=== PATIENT | female | born 1995 | race Hispanic/Latino ===

== ENCOUNTER 2017-11-25 13:02 | Inpatient (IN) | payer MEDICAID, OTHER, SELFPAY ==
--- NOTE | 2017-11-25 14:27 | PDOC.LDHP ---
Labor and Delivery H&P Chief complaint: other (non-reactive NST, borderline abnormal SARBJIT (5)) HPI: Pt presents today to labor triage from clinic. She has not ate or drank much for the past 24 hours but does not have any complaints besides the normal itching in her hands and feet that she has had all during this and previous ones. She denies chest pain, shortness of breath, headache, reduced movement. Current gestational age (weeks): 33 (33.4) Due date: 01/09/18 Dating criteria: other (US at 29.1 wks) Grav: 5 Para: 4 OB History Details: cholestasis of Current complications: other (cholestasis of ) Abnormal US findings: Yes (borderline SARBJIT (5), non-reactive NST in clinic ) Past Medical History: none Current medications: none Previous surgical history: none Social history: none - Physical Exam Vital signs reviewed and normal: yes General: NAD Heart: RRR Lungs: nonlabored breathing Abdomen: gravid Extremeties: no edema FHT: category 1, variability present (accelerations present, baseline 140 HR) - OB Labs Blood type: B RH: positive Antibody Screen: negative HIV: negative RPR: negative HEPSAg: negative 1 hour GCT: positive 3 hour GTT: negative x4 GBS: unknown Urine drug screen: not done Rubella: immune Additional Labs: Bile acid: 15 10/29/17 - Assessment cholestasis of - Plan Plan: observation in L&D (repeat BPP and NST, PO hydration) <Abdon Shannon - Last Filed: 11/25/17 14:33> <Rochelle aPrra - Last Filed: 11/25/17 18:08> Allergies/Adverse Reactions: Allergies Allergy/AdvReac Type Severity Reaction Status Date / Time No Known Allergies Allergy Unverified 11/25/17 14:30 Attending Addendum - Attending Addendum Date/Time: 11/25/17 0807 I personally evaluated the patient and discussed the management with Dr. Shannon I agree with the History, Examination, Assessment and Plan documented above with any addition or exceptions noted below- 22 yo @33.4 weeks with cholestasis of sent from clinic due to a nonreactive NST and borderline amniotic fluid. Patient denies any complaints. Denies any ctx, LOF, VB. (+) FM. Afebrile VSS FHTs here is Category 1 and reactive. Repeat BPP 12/22 with total SARBJIT 4.9. Will hydrate overnight and repeat in AM. Will give course of steroids for lung maturity in anticipation of early delivery <Rochelle Parra - Last Filed: 11/25/17 18:08>
--- NOTE | 2017-11-25 15:37 | PDOC.EVN ---
Event Note - Event Note Event Note: Repeat BPP: 10/22 with SARBJIT 4.9, will start IV fluids and admit to observation, repeat BPP tomorrow
[2017-11-25] MEDS ORDERED: Acetaminophen 500 MG TAB PO PRN (15:38)
[2017-11-25] MEDS ORDERED: Ondansetron HCl/PF 4 MG/2 ML Vial IVP PRN (15:38)
[2017-11-25] MEDS ORDERED: Promethazine HCl 25 MG/ML VIAL IM PRN (15:38)
[2017-11-25] MEDS ORDERED: Lactated Ringer's 1,000 ML IV SCH (15:45)
--- NOTE | 2017-11-25 16:06 | ULT ---
BIOPHYSICAL PROFILE: 11/25/17 HISTORY: Abnormal SARBJIT, oligohydramnios. Multiple longitudinal and transverse images of an intrauterine is obtained using a multiher tz curvilinear transducer. Real time M-mode images were used to evaluate the fetus. Images demonstrat e a viable intrauterine with fetus in a cephalic presentation. Cervical length measures 3.0 cm. The placenta is anterior. Cardiac activity is seen measuring 149 beats per minute. Amniotic fluid index measures 4.9 cm. BIOPHYSICAL PROFILE: tone = 2 breathing = 2 movement = 2 Amniotic fluid volume = 2 Composite equals 8 out of 8. IMPRESSION: Biophysical profile measures 8 out of 8. POS: [facility]
[2017-11-25 16:42] LABS: Amnisure Internal Control QC ACCEPTABLE (ACCEPTABLE)
[2017-11-25 16:45] LABS: Amnisure Test No Membranes Rupture (No Rupture)
[2017-11-25] MEDS: Betamet Acet/Betamet Na Ph 30 MG/5 ML VIAL IM SCH (18:20)
[2017-11-25 18:28] VITALS: BMI 27.2
[2017-11-25] MEDS: Lactated Ringer's 1,000 ML IV SCH (18:41)
--- NOTE | 2017-11-25 21:47 | PDOC.EVN ---
Event Note - Event Note Event Note: Check at 21:15. Patient reports no pain and is feeling baby move well. Vitals: BP 108/65, HR 70, R 16, 98% on RA, T 98.6 PE: NAD. Heart RRR, no murmurs rubs or gallops. Lungs CTAB, no wheezes or crackles. Abd NTTP, gravid and soft. FHTs: Baseline 145. Mod variability. Good accels, no decels. No cxns. Cat 1 tracing. A&P:stable. continue monitoring. <Deirdre Feliciano - Last Filed: 11/25/17 21:52> - Event Note Event Note: Agree with above. 22 yo female at 33.4 wks by 29.1 wk sono here for abnormal testing. complicated by Intrahepatic cholestasis of and now new onset oligohydramnios. FHT: Reactive and reassuring. No contractions. +FM. SARBJIT = 4.9 but DVP >2 cm BPP = 8/8. BMZ x1. Continue q 4 hour checks until AM. Repeat BPP with UA dopplers in AM. ZachMD <Letty Candelario - Last Filed: 11/25/17 22:10>
--- NOTE | 2017-11-26 02:36 | PDOC.EVN ---
Addendum entered and electronically signed by Deirdre Feliciano MD 11/26/17 02:36: Pt reports pruritis of legs. Original Note: Event Note - Event Note Event Note: Check at 01:15 (11/26/17). Patient reports no pain and is feeling baby move well. Vitals: BP 100/64, HR 62, R 16 PE: NAD. Heart RRR, no murmurs rubs or gallops. Lungs CTAB, no wheezes or crackles. Abd NTTP, gravid and soft. FHTs: Reactive and reassuring. No cxns. A&P: 22 yo female at 33.5 wks by 29.1 wk sono here for abnormal testing. complicated by Intrahepatic cholestasis of and now new onset oligohydramnios. Continue q 4 hour checks until AM. Repeat BPP with UA dopplers in AM. <Deirdre Feliciano - Last Filed: 11/26/17 02:33> - Event Note Event Note: 22 yo female at 33.5 wks by 29.1 wk sono admitted for abnormal testing. BMZ x1 will admister 2nd dose later today. Will re-evaluate need for further monitoring vs need for delivery. status remains reassuring. ABrayMD <Letty Candelario - Last Filed: 11/27/17 08:20>
[2017-11-26] MEDS: Lactated Ringer's 1,000 ML IV SCH ×2 (03:11→11:09)
--- NOTE | 2017-11-26 05:21 | PDOC.EVN ---
Event Note - Event Note Event Note: Check at 0500 (11/26/17). Patient reports no pain and is feeling baby move well. Complains of itchy legs. Vitals: BP 105/56, HR 55, R 16 PE: NAD. Heart RRR, no murmurs rubs or gallops. Lungs CTAB, no wheezes or crackles. Abd NTTP, gravid and soft. FHTs: Reactive and reassuring. baseline 130s, moderate variability, no decels. A&P: 22 yo female at 33.5 wks by 29.1 wk sono here for abnormal testing. complicated by Intrahepatic cholestasis of and now new onset oligohydramnios. Continue q 4 hour checks until AM. Repeat BPP with UA dopplers in AM. <Deirdre Feliciano - Last Filed: 11/26/17 05:20> - Event Note Event Note: Repeat BPP, umbilical artery dopplers, and growth this AM. BMZ 2nd dose today. Will decide if delivery needed or may continue expectant management based on testing today. If expectant management will likely need further inpatient monitoring. Sharon <Letty Candelario - Last Filed: 11/27/17 08:23>
--- NOTE | 2017-11-26 07:20 | PDOC.FM ---
- Subjective Subjective: 22 yo @ 333.5wks with cholestasis of , presents from [facility] with a NR NST and oligohydramnios, admitted for monitoring. Endorses good movement. Denies complaints this morning. - Objective MAR Reviewed: Yes Vital Signs & Weight: Vital Signs (12 hours) Temp Pulse Resp BP 11/26/17 06:00 53 L 117/52 L 11/26/17 05:00 57 L 105/65 11/26/17 03:00 62 16 113/72 11/26/17 02:00 98.2 F 61 16 100/64 11/26/17 01:00 64 16 101/61 11/26/17 00:00 98.2 F 60 16 108/58 L 11/25/17 20:00 98.6 F 63 16 Weight Admit Weight 67.585 kg Weight 67.585 kg <Janina Howe - Last Filed: 11/26/17 10:57> - Objective Vital Signs & Weight: Vital Signs (12 hours) Temp Pulse Resp BP 11/26/17 11:00 98.4 F 76 20 118/74 11/26/17 08:00 98.7 F 78 20 11/26/17 07:00 98.7 F 84 20 11/26/17 06:00 53 L 117/52 L 11/26/17 05:00 57 L 105/65 11/26/17 03:00 62 16 113/72 11/26/17 02:00 98.2 F 61 16 100/64 11/26/17 01:00 64 16 101/61 Weight Admit Weight 67.585 kg Weight 67.585 kg I&O: 11/25/17 11/26/17 11/27/17 06:59 06:59 06:59 Intake Total 740 Output Total 502 Balance 238 <Rochelle Parra - Last Filed: 11/26/17 12:34> Phys Exam - Physical Examination Constitutional: NAD HEENT: PERRLA, moist MMs Respiratory: no wheezing, no rales, clear to auscultation bilateral Cardiovascular: RRR, no significant murmur Gastrointestinal: soft, non-tender, no distention Neurological: non-focal Psychiatric: normal affect, A&O x 3 Skin: no rash <Janina Howe - Last Filed: 11/26/17 10:57> Dx/Plan (1) Cholestasis during in third trimester Code(s): O26.613 - LIVER AND BILIARY TRACT DISORD IN , THIRD TRIMESTER ; K83.1 - OBSTRUCTION OF BILE DUCT Status: Acute - Plan Plan: 22 yo @33.4 weeks with cholestasis of . 1. Cholestasis of - -Sent from clinic due to a nonreactive NST and borderline amniotic fluid. -Denies any ctx, LOF, VB. (+) FM today - FHTs here reactive. - Repeat BPP pending with dopplers and growth this am. If 12/22 plan for discharge. Will monitor for longer if abnormal and repeat BPP in 24 hours. -Will continue steroids for lung maturity in anticipation of early delivery -Will consult ob hospitalists. <Janina Howe - Last Filed: 11/26/17 10:57> Attending Addendum - Attending Addendum Date/Time: 11/26/17 1230 I personally evaluated the patient and discussed the management with Dr. Sanford [place]hee I agree with the History, Examination, Assessment and Plan documented above with any addition or exceptions noted below- Patient denies any complaints. Feeling baby move well. Denies any abdominal pain, LOF. Afebrile VSS. A/P: IUP @ 33.5 weeks with oligohydramnios and cholestasis of - repeat BPP 10/22 (- 2 for fluid) today. Total SARBJIT=4.3. NST reactive. OB laborist consult obtained and recommended induction 24 hours after second dose of steroids for lung maturity. Will plan to start induction tomorrow. Will notify neonatology of plan for delivery. <Rochelle Parra - Last Filed: 11/26/17 12:34>
[2017-11-26] MEDS: Betamet Acet/Betamet Na Ph 30 MG/5 ML VIAL IM SCH (08:00)
--- NOTE | 2017-11-26 11:58 | ULT ---
LIMITED OBSTECTRICAL ULTRASOUND WITH BIOPHYSICAL PROFILE AND UMBILICAL ARTERY DOPPLER: DATE: 11/26/17. HISTORY: Oligohydramnios, 22-year-old female. TECHNIQUE: Multiplanar, hook scale sonographic imaging of the gravid uterus obtained with transabdominal imaging . A biophysical profile is performed. The umbilical artery is assessed with color flow and spectral analysis. FINDINGS: There is a single intrauterine gestation demonstrating a cephalic presentation. Placenta is located anteriorly demonstrating no evidence for previa or abruption. heart rate is 141-144 b.p.m. Th ere is oligohydramnios noted, with an amniotic fluid index of 4.2 cm. Umbilical arterial Doppler evaluation demonstrates peak systolic velocity ranging from 35.4 cm/s to 4 7.9 cm/s with a systolic/diastolic ratio measuring up to 2.7. Biometry: BPD 8.0 cm, 32 weeks 1 day HC 28.8 cm, 31 weeks 5 days AC 28.4 cm, 32 weeks 3 days FL 6.2 cm, 32 weeks 1 day Average age based on ultrasound is 31 weeks 5 days. Estimated date of delivery is 01/23/18. Estimated weight is 1935 gm +/- 286 gm. BIOPHYSICAL PROFILE: tone, breathing, and movements score 2 out of 2. Amniotic fluid scores 0 out of 2 for a biophysical profile score of 6-8. IMPRESSION: Intrauterine gestation as detailed above. Six out of 8 biophysical profile score with oligohydramnio s noted. Systolic/diastolic ratio measures approximately 2.7. POS: [facility]
--- NOTE | 2017-11-26 12:41 | CON ---
DATE OF CONSULTATION: 11/26/2017 ATTENDING PHYSICIAN: Rochelle Parra M.D. CONSULTING PHYSICIAN: Wilfredo Pearl M.D. REASON FOR CONSULTATION: Obstetrical management. HISTORY OF PRESENT ILLNESS: Ms. Florinda Yanez is a 22-year-old with an estimated date of confinement of 01/09/2018 by 29-week ultrasound who I was asked to see by [facility] residency Program. This patient was brought over yesterday from the Clinic yesterday with findings of a nonreactive NST and an SARBJIT of 5. She was evaluated here and initially found to have a reactive tracing here, but biophysical profile testing again showed an SARBJIT of less than 5. She was hydrated overnight and her biophysical profile was repeated again this morning. Her ultrasound this morning shows an SARBJIT now of only 4.2 and with a weight of 4 pounds 4 ounces. The vertex is presenting. AmniSure done on this patient on admission is negative. The patient has received a dose of steroids last night followed by a followup dose again at 8 this morning, with doses 12 hrs apart. At the present time, she denies bleeding or decreased movement. Of note, also is the fact that she has been followed in clinic with a diagnosis of cholestasis of . PAST OBSTETRICAL HISTORY: Includes 4 vaginal deliveries, all reportedly uncomplicated per the patient. PAST MEDICAL HISTORY: None. CURRENT MEDICATIONS: None. PAST SURGICAL HISTORY: None. ALLERGIES: No reported allergies. FAMILY HISTORY: She denies pelvic malignancy in the family. REVIEW OF SYSTEMS: She denies nausea, vomiting, fever, chills, loss of fluid or vaginal bleeding. PHYSICAL EXAMINATION: VITAL SIGNS: This morning her vital signs are stable and she is afebrile. GENERAL: She is pleasant and in no acute distress. ABDOMEN: Soft, nontender and gravid. No vaginal bleeding seen. PELVIC: Deferred. heart rate tracing is reassuring with spontaneous accelerations and no decelerations seen. No uterine activity is noted. ASSESSMENT AND PLAN: 1. 33 and 5/7 week intrauterine by late dates. 2. Cholestasis of . 3. Now with persistent significant oligohydramnios despite hydration. 4. Two doses of steroids have been given. PLAN: At this time, in veiw of the oligohyramnios and the cholestasis, I think the best management strategy would be to proceed with delivery starting 24 hours after her last dose of steroids. Her last exam in clinic was reported to be unfavorable so consideration of either Cytotec or balloon for cervical ripening followed by Pitocin induction would be recommended. MTDD
[2017-11-26 20:09] LABS: #Basophils 0.1 thou/uL (0.0-0.2); #Lymphocytes 1.1 thou/uL (1.20-3.40); #Monocytes 0.3 thou/uL (0.11-0.59); #Neutrophils 7.4 thou/uL (1.40-6.50); %Basophils 0.9 % (0.0-1.0); %Eosinophils 0.3 % (0.0-10.0); %Lymphocytes 12.1 % (21.0-51.0); %Monocytes 3.4 % (0.0-10.0); %Neutrophils 83.3 % (42.0-75.0); Hemoglobin 11.5 g/dL (12.0-16.0); Mean Corpuscular HGB CONC 35.4 g/dL (32.0-36.0); Mean Corpuscular Hemoglobin 31.3 pg (27.0-31.0); Mean Corpuscular Volume 88.6 fL (78.0-98.0); Mean Platelet Volume 10.6 fL (7.4-10.4); Platelet Count 168 thou/uL (130-400); RBC Distribution Width 11.9 % (11.5-14.5); Red Blood Cell (RBC) Count 3.67 mill/uL (4.20-5.40); White Blood Cell (WBC) Count 8.8 thou/uL (4.8-10.8)
[2017-11-26 20:20] LABS: ALT (SGPT) 77 U/L (8-55); AST (SGOT) 57 U/L (5-34); Albumin 3.1 g/dL (3.5-5.0); Alkaline Phosphatase 236 U/L (40-150); Anion Gap 13 mmol/L (10-20); BUN (Urea Nitrogen) 5 mg/dL (7.0-18.7); Bilirubin, Total 0.5 mg/dL (0.2-1.2); Calc. Creatinine Clearance 178 mL/min (70-130); Calcium 8.9 mg/dL (7.8-10.44); Carbon Dioxide 19 mmol/L (22-29); Chloride 110 mmol/L (98-107); Estimated GFR-MDRD Greater than 90; Globulin 3.5 g/dL (2.4-3.5); Glucose 122 mg/dL (70-105); Potassium 3.9 mmol/L (3.5-5.1); Protein, Total 6.6 g/dL (6.0-8.3); Sodium 138 mmol/L (136-145)
[2017-11-26 20:33] LABS: HBSAg Index 0.15 S/CO (0-0.99); HIV (1/2) Antibody/Antigen Non-Reactive (NonReactive); HIV 1/2 INDEX 0.09 S/CO (<1.00); Hep B Surf Ag Non-Reactive S/CO (NonReactive)
[2017-11-26 20:49] LABS: Syphilis Antibody Nonreactive (Nonreactive); Syphilis Antibody Index 0.04 S/CO (<1.00 Non-Reactive)
[2017-11-26] MEDS ORDERED: Ursodiol 300 MG CAP PO SCH (21:00)
--- NOTE | 2017-11-27 07:21 | PDOC.LDPN ---
Labor & Delivery Progress Note - Subjective Subjective: comfortable - Objective Vital signs reviewed and normal: yes General: NAD, resting - Assessment (1) Cholestasis during in third trimester Code(s): O26.613 - LIVER AND BILIARY TRACT DISORD IN , THIRD TRIMESTER ; K83.1 - OBSTRUCTION OF BILE DUCT Current Visit: Yes Status: Acute Comment: Currently on actigol. Not itching at this time. Planned induction of labor due to cholestasis of . (2) Encounter for planned induction of labor Code(s): Z34.90 - ENCNTR FOR SUPRVSN OF NORMAL , UNSP, UNSP TRIMESTER Current Visit: Yes Status: Acute Comment: Will start with cervedil induction due to unfavorable cervix, close thick and high at last check. Will change augmentation as appropriate. (3) High-risk in third trimester Code(s): O09.93 - SUPERVISION OF HIGH RISK , UNSP, THIRD TRIMESTER Current Visit: Yes Status: Acute Comment: High risk secondary to cholestasis of , oligohydramnios, delivery. Plan for induction of labor. Consult Neonatology. -: 22 yo @ 33.6 week with cholestasis of who presented for NR NST and oligohydramnios. Consulted OBGYN, appreciate rec Repeat BP 6/8 secondary to SARBJIT of 4.9, not responded to fluid. Steroid given 2x, last at 0800 on 11/26/17. OBGYN rec waiting at least 24 hour after second steroid before induction. Notify Andrea plan for delivery. <Nahun Johnson - Last Filed: 11/27/17 08:43> Attending Addendum - Attending Addendum Date/Time: 11/27/17 1036 I personally evaluated the patient and discussed the management with Dr. Johnson I agree with the History, Examination, Assessment and Plan documented above with any addition or exceptions noted below- Patient without complaints. (+) FM. Afebrile VSS. 1) IUP @ 33.6 weeks with oligihydramnios and cholestasis of - case discussed with Dr. Pearl and he recommended proceeding with induction due to the persistent oligohydramnios despite IV hydration. Plan discussed with patient by Dr. Ruiz and reviewed again today. All questions answered. Will plan to use cervidil for cervical ripening. <Lichorad,Rochelle - Last Filed: 11/27/17 10:43>
[2017-11-27] MEDS: Lactated Ringer's 1,000 ML IV SCH ×3 (08:15→17:16)
[2017-11-27] MEDS ORDERED: Ibuprofen 800 MG TAB PO PRN (08:16)
[2017-11-27] MEDS ORDERED: Lidocaine 1% (PF) 30 ML VIAL SC PRN ×3 (08:16→22:33)
[2017-11-27] MEDS ORDERED: NS / Oxytocin 40 units/1000ml 1,000 ML IV PRN ×3 (08:16→22:33)
[2017-11-27] MEDS ORDERED: Penicillin G Potassium 5 MILL.UNITS in Sodium Chloride 0.9% 100 ML IVPB SCH (08:30)
[2017-11-27] MEDS ORDERED: Penicillin G 2.5 MILL.units 2.5 MILL.UNITS in Premix Bag 1 BAG IVPB SCH (09:00)
[2017-11-27] MEDS ORDERED: Dinoprostone 10 MG Suppository VAG PRN (09:14)
--- NOTE | 2017-11-27 10:29 | PDOC.LDPN ---
Labor & Delivery Progress Note - Subjective Subjective: comfortable - Objective Vital signs reviewed and normal: yes General: NAD Uterine fundus: non tender SVE: Midposition, soft Dilation: 1 cm Effacement: 50% Station: -3 FHT: category 1, variability present [place] contractions every: 8 min - Assessment (1) Cholestasis during in third trimester Code(s): O26.613 - LIVER AND BILIARY TRACT DISORD IN , THIRD TRIMESTER ; K83.1 - OBSTRUCTION OF BILE DUCT Current Visit: Yes Status: Acute Comment: Currently on actigol. Not itching at this time. Planned induction of labor due to cholestasis of . (2) Encounter for planned induction of labor Code(s): Z34.90 - ENCNTR FOR SUPRVSN OF NORMAL , UNSP, UNSP TRIMESTER Current Visit: Yes Status: Acute Comment: Cervedil placed at 1000 hour. It will stay in for 6-8 hours. Will change aumentaiton agent as needed. (3) High-risk in third trimester Code(s): O09.93 - SUPERVISION OF HIGH RISK , UNSP, THIRD TRIMESTER Current Visit: Yes Status: Acute Comment: High risk secondary to cholestasis of , oligohydramnios, delivery. Plan for induction of labor. Andrea has been made aware. Plan: continue plan of care <Nahun Johnson - Last Filed: 11/27/17 10:28> Attending Addendum - Attending Addendum Date/Time: 11/27/17 1044 I personally evaluated the patient and discussed the management with Dr. Johnson I agree with the History, Examination, Assessment and Plan documented above with any addition or exceptions noted below- Cervidil placed wihtout difficulty. recheck in 4-6 hours and assess progress. Category 1 FHTs. Start GBS prophylaxis when in active labor or when pitocin started. <Rochelle Parra - Last Filed: 11/27/17 10:48>
[2017-11-27] MEDS ORDERED: Penicillin G Potassium 5 MILL.UNITS VIAL ONE (16:01)
[2017-11-27] MEDS: Penicillin G 2.5 MILL.units 2.5 MILL.UNITS in Premix Bag 1 BAG IVPB SCH ×3 (17:15→20:13)
[2017-11-27] MEDS ORDERED: Butorphanol Tartrate 1 MG/ML VIAL ONE ×3 (17:32→22:36)
[2017-11-27] MEDS: Butorphanol Tartrate 1 MG/ML VIAL SLOW IVP PRN ×2 (19:15→22:38)
--- NOTE | 2017-11-27 19:34 | PDOC.LDPN ---
Labor & Delivery Progress Note - Subjective Subjective: painful contractions - Objective Vital signs reviewed and normal: yes General: breathing through contractions Uterine fundus: non tender SVE: Performed by me at 1715 Dilation: 3 Effacement: 50% Station: -3 FHT: category 1 Resuscitative measures: other - Assessment (1) Cholestasis during in third trimester Code(s): O26.613 - LIVER AND BILIARY TRACT DISORD IN , THIRD TRIMESTER ; K83.1 - OBSTRUCTION OF BILE DUCT Current Visit: Yes Status: Acute Comment: Currently on actigol. Not itching at this time. Planned induction of labor due to cholestasis of . (2) Encounter for planned induction of labor Code(s): Z34.90 - ENCNTR FOR SUPRVSN OF NORMAL , UNSP, UNSP TRIMESTER Current Visit: Yes Status: Acute Comment: Cervedil placed at 1000 hour. It will stay in for 6-8 hours. Will change aumentaiton agent as needed. Plan: continue plan of care -: - Continue current plan. - will repeat SVE in 1 hr. - consider augmentation with Pit if no change. - stadol given for pain.
[2017-11-27] MEDS ORDERED: Penicillin G 2.5 MILL.units 0 ML ONE (20:05)
--- NOTE | 2017-11-27 20:32 | PDOC.LDPN ---
Labor & Delivery Progress Note - Subjective Subjective: painful contractions - Objective Vital signs reviewed and normal: yes General: breathing through contractions SVE: 3/70%/-2 FHT: category 1 [place] contractions every: q2 minutes - Assessment (1) Oligohydramnios in weber in third trimester Code(s): O41.03X0 - OLIGOHYDRAMNIOS, THIRD TRIMESTER, NOT APPLICABLE OR UNSP Current Visit: Yes Status: Acute (2) Cholestasis during in third trimester Code(s): O26.613 - LIVER AND BILIARY TRACT DISORD IN , THIRD TRIMESTER ; K83.1 - OBSTRUCTION OF BILE DUCT Current Visit: Yes Status: Acute Comment: Currently on actigol. Not itching at this time. Planned induction of labor due to cholestasis of . -: A/P: 1) IUP@ 33.6 weeks undergoing induction for oligihydramnios and cholestasis Progressing well; cervix now favorable Plan to start pitocin at 10 PM Category 1 FHTs
[2017-11-27] MEDS ORDERED: NS w/ Oxytocin 10 units 500 ML IV SCH (22:45)
--- NOTE | 2017-11-27 23:26 | PDOC.LDPN ---
Labor & Delivery Progress Note - Subjective Subjective: painful contractions - Objective Vital signs reviewed and normal: yes General: resting SVE: 3/70%/-2 FHT: category 1 [place] contractions every: q2-5 min - Assessment (1) Oligohydramnios in weber in third trimester Code(s): O41.03X0 - OLIGOHYDRAMNIOS, THIRD TRIMESTER, NOT APPLICABLE OR UNSP Current Visit: Yes Status: Acute (2) Cholestasis during in third trimester Code(s): O26.613 - LIVER AND BILIARY TRACT DISORD IN , THIRD TRIMESTER ; K83.1 - OBSTRUCTION OF BILE DUCT Current Visit: Yes Status: Acute Comment: Continue induction; now started on pitocin; pain medications as per patient request. Category 1 FHTs
[2017-11-28] MEDS: Penicillin G 2.5 MILL.units 2.5 MILL.UNITS in Premix Bag 1 BAG IVPB SCH ×3 (00:30→10:41)
[2017-11-28] MEDS ORDERED: Methylergonovine 0.2 MG/ML VIAL ONE (01:02)
[2017-11-28] MEDS ORDERED: Misoprostol 200 MCG TAB ONE (01:03)
[2017-11-28] MEDS ORDERED: Bupivacaine 0.75% 13.4 ML, fentaNYL Citrate/PF 400 MCG in Sodium Chloride 0.9% 78.6 ML EPIDURAL SCH (02:00)
[2017-11-28] MEDS ORDERED: DISCONTINUE ALL PREVIOUS NARCOTICS FS SCH (02:00)
--- NOTE | 2017-11-28 02:00 | PDOC.LDPN ---
Labor & Delivery Progress Note - Subjective Subjective: painful contractions - Objective Vital signs reviewed and normal: yes General: breathing through contractions SVE: 6/80%/0 FHT: category 1, variability present [place] contractions every: 2-3 minutes Plan: continue plan of care, other (Pt states she wants an epidural at this time.)
[2017-11-28] MEDS ORDERED: Ondansetron HCl/PF 4 MG/2 ML Vial IVP PRN (02:36)
[2017-11-28] MEDS ORDERED: diphenhydrAMINE 50 MG/ML VIAL IVP PRN (02:36)
[2017-11-28] MEDS ORDERED: Acetaminophen 325 MG TAB PO PRN (02:36)
[2017-11-28] MEDS ORDERED: Lactated Ringer's 500 ML IV PRN (02:36)
[2017-11-28] MEDS ORDERED: ePHEDrine/0.9% NaCl/PF SYRINGE 50 mg/10 ml SLOW IVP PRN (02:36)
[2017-11-28] MEDS ORDERED: Naloxone HCl 0.4 mg/ml Vial IVP PRN ×2 (02:36)
[2017-11-28] MEDS ORDERED: Promethazine HCl 25 MG/ML VIAL IM PRN (02:36)
[2017-11-28] MEDS ORDERED: Eucerin (Mineral Oil/Petrolatum,White) 30 gm Jar TOP PRN (02:36)
[2017-11-28] MEDS ORDERED: fentaNYL Citrate/PF 400 MCG, Bupivacaine 0.5% 20 ML in Sodium Chloride 0.9% 72 ML EPIDURAL SCH (02:45)
[2017-11-28] MEDS ORDERED: Communication Order-Pharmacy FS SCH (02:45)
[2017-11-28] MEDS: Lactated Ringer's 1,000 ML IV SCH ×3 (03:12→14:48)
--- NOTE | 2017-11-28 04:12 | PDOC.OPDEL ---
OB Operative/Delivery Note Delivery Dr/Surgeon: Dr. Deirdre Feliciano Assist: Attending, Dr. Parra Pre-Delivery Diagnosis: medically indicated induction, other (cholestasis of and oligohydramnios) Procedure/Post Delivery Dx: spontaneous vaginal delivery Weeks gestation: 34 (34.0) Anesthesia: epidural - Findings A Sex: female - 1 min: 8 - 5 min: 9 - Additional Findings/Plan Placenta delivered: spontaneous Repaired Obstetrical Laceration: none Estimated blood loss: 200 ml Compilations/Other Findings: Delivery Note: This is 22yo F G5 now [id number] @ 34.0 wks who delivered a viable F infant at 0336. Patient was induced 2/2 to cholestasis of and oligohydramnios. Pt progressed in labor to complete and delivered a vigorous F over an intact perineum in the Left occipitoanterior position. Anterior Shoulder and then remainder of the body delivered. Loose nuchal cord x 1. The head was held down and mouth and nares were bulb suctioned. After delayed cord clamping the cord was cut and cord blood collected. Placenta delivered intact [place] presentation with a 3 vessel cord noted. Fundal massage was performed and the fundus was firm. The cervix and vagina were inspected and found to be free of lacerations. Infant went to NICU in good condition. Apgars were 8/9 at 1 & 5 minutes, respectively. Patient tolerated delivery well and went to after routine recovery/care. <Deirdre Feliciano - Last Filed: 11/28/17 04:09> Attending Addendum - Attending Addendum Date/Time: 11/28/171916 I was present and supervised the of a viable female over an intact perineum on 11/28 @0336. Apgars 8/9. Placenta delivered spintaneously and intact. 3V cord. No epis or lacerations. EBL 200 mL <Rochelle Parra - Last Filed: 11/28/17 19:21>
[2017-11-28] MEDS ORDERED: NS / Oxytocin 40 units/1000ml 1,000 ML IV SCH (06:41)
[2017-11-28] MEDS ORDERED: Adacel (T-DAP) 0.5 ML VIAL IM ONE (06:41)
[2017-11-28] MEDS ORDERED: diphenhydrAMINE 25 MG CAP PO PRN (06:41)
[2017-11-28] MEDS ORDERED: Bisacodyl 10 MG SUPP PR PRN (06:41)
[2017-11-28] MEDS ORDERED: Benzocaine/Menthol 20-0.5% 60 ML CAN TOP PRN (06:41)
[2017-11-28] MEDS ORDERED: Milk Of Magnesia 30 ML UDCUP PO PRN (06:41)
--- NOTE | 2017-11-28 07:41 | PDOC.PP ---
Post Progress Note Post Day #: 0 Subjective: Feeling well besides numbness in legs 2/2 to epidural. Denies headache, fever, SOB, bleeding. PO intake tolerated: no Flatus: no Ambulation: no Vital Signs (12 hours) Temp Pulse Resp BP 11/28/17 06:30 97.8 F 47 L 16 110/69 11/27/17 19:59 97.7 F 64 16 Weight Admit Weight 67.585 kg Weight 67.585 kg - Physical Examination General: NAD Cardiovascular: RRR Deviation from normal: 2/6 systolic murmur, likely flow murmur Respiratory: clear to auscultation bilaterally, non-labored breathing Abdominal: + bowel sounds, lochia, no distention, appropriately TTP Fundus firm & at: 20 cm Extremities: negative homans (B) Neurological: no gross focal deficits Psychiatric: A&Ox3, normal affect Result Diagrams: 11/26/17 19:42 11/26/17 19:42 Additional Labs: Post Labs Blood Type B POSITIVE 11/26/17 19:42 Hep Bs Antigen Non-Reactive S/CO (NonReactive) 11/26/17 19:42 (1) Cholestasis during in third trimester Code(s): O26.613 - LIVER AND BILIARY TRACT DISORD IN , THIRD TRIMESTER ; K83.1 - OBSTRUCTION OF BILE DUCT Status: Acute Comment: Has delivered viable female. Not itching at this time. (2) Encounter for planned induction of labor Code(s): Z34.90 - ENCNTR FOR SUPRVSN OF NORMAL , UNSP, UNSP TRIMESTER Status: Acute Comment: Resolved issue. (3) High-risk in third trimester Code(s): O09.93 - SUPERVISION OF HIGH RISK , UNSP, THIRD TRIMESTER Status: Acute Comment: Resolved issue. (4) care and examination Code(s): Z39.2 - ENCOUNTER FOR ROUTINE FOLLOW-UP Status: Acute Comment: Approximately 3 hour post . Pain is under control. Patient has not yet ambulating, taking oral intake. Will monitor.
[2017-11-28] MEDS: Prenatal Vitamin 1 TAB PO SCH (09:57)
[2017-11-28] MEDS: Ibuprofen 800 MG TAB PO SCH ×3 (09:58→19:28)
[2017-11-28] MEDS: Docusate Calcium (SURFAK) 240 MG CAP PO SCH ×2 (09:58→20:38)
[2017-11-28] MEDS: Ferrous Sulfate 325 MG TAB PO SCH ×2 (10:00→18:24)
[2017-11-28] MEDS ORDERED: Bupivacaine/Epinephrine 0.25% 30 ML VIAL ONE (14:06)
[2017-11-29] MEDS: Lactated Ringer's 1,000 ML IV SCH ×3 (04:53→19:31)
[2017-11-29] MEDS: Ibuprofen 800 MG TAB PO SCH ×3 (05:22→21:19)
--- NOTE | 2017-11-29 06:11 | PDOC.PP ---
Post Progress Note Post Day #: 1 Subjective: Pt feels well and reports only minimal back pain. Some persistent itchiness in her feet but it has greatly improved. PO intake tolerated: yes Flatus: yes Ambulation: yes Vital Signs (12 hours) Temp Pulse Resp BP 11/29/17 05:05 98.2 F 65 14 112/62 11/29/17 01:20 98.8 F 64 18 107/66 11/28/17 20:05 98.6 F 68 20 93/59 L Weight Admit Weight 67.585 kg Weight 67.585 kg - Physical Examination General: NAD Cardiovascular: RRR Respiratory: clear to auscultation bilaterally Extremities: negative homans (B) Skin: no rash Neurological: no gross focal deficits Psychiatric: A&Ox3, normal affect Result Diagrams: 11/29/17 11:33 11/26/17 19:42 Additional Labs: Post Labs Blood Type B POSITIVE 11/26/17 19:42 Hep Bs Antigen Non-Reactive S/CO (NonReactive) 11/26/17 19:42 (1) delivery after induction of labor Code(s): O60.10X0 - LABOR W DELIVERY, UNSP TRIMESTER, UNSP Status: Acute (2) Cholestasis during in third trimester Code(s): O26.613 - LIVER AND BILIARY TRACT DISORD IN , THIRD TRIMESTER ; K83.1 - OBSTRUCTION OF BILE DUCT Status: Acute Comment: Has delivered viable female. Not itching at this time. (3) Oligohydramnios in weber in third trimester Code(s): O41.03X0 - OLIGOHYDRAMNIOS, THIRD TRIMESTER, NOT APPLICABLE OR UNSP Status: Acute - Assessment/Plan 32 yo delivered a PTAGA female at 34 weeks by 29.1 wk sono on 11/28 @ 0336 via . Induced due to oligohydramnios, SARBJIT 4.2 with no fluid pocket > 2. Complicated by cholestasis of . 1. s/p after induction for oligohydramnios - patient received steroid intrapartum for lung maturity - PPD #1 - Meeting all pp milestones - Continue plan of care - PP H&H pending 2. Cholestasis during -minimal itching in feet -continue to monitor symptoms 3. Unknown GBS status -GBS test not performed -due to prematurity patient given antibiotics during delivery 4. Oligohydramnios with indication for induction -s/p Dispo: Plan to discharge today. As infant is in NICU, will d/c to bed and breakfast. <Ladi Luna - Last Filed: 11/29/17 12:31> Vital Signs (12 hours) Temp Pulse Resp BP Pulse Ox 11/29/17 08:00 98.2 F 57 L 16 100/64 98 11/29/17 05:05 98.2 F 65 14 112/62 Weight Admit Weight 67.585 kg Weight 67.585 kg Result Diagrams: 11/29/17 11:33 11/26/17 19:42 Additional Labs: Post Labs Blood Type B POSITIVE 11/26/17 19:42 Hep Bs Antigen Non-Reactive S/CO (NonReactive) 11/26/17 19:42 <Letty Candelario - Last Filed: 11/29/17 14:13> Attending Addendum - Attending Addendum Date/Time: 11/29/17 5735 I personally evaluated the patient and discussed the management with Dr. Luna and Dr. Hooker I agree with the History, Examination, Assessment and Plan documented above with any addition or exceptions noted below. 22 yo female s/p 2/2 medically indicated IOL for worsening IHC of and persistent oligohydramnios. PPD#1. Doing well. Lochia mild. Reports mild headache at present. Still with some itching but improving. VS reviewed. Fundus firm and below the umbilicus. /pumping. Continue routine pp care. ABrayMD <Letty Candelario - Last Filed: 11/29/17 14:13>
[2017-11-29 11:47] LABS: Hemoglobin 10.2 g/dL (12.0-16.0)
[2017-11-29] MEDS: Docusate Calcium (SURFAK) 240 MG CAP PO SCH ×2 (14:02→21:18)
[2017-11-29] MEDS: Ferrous Sulfate 325 MG TAB PO SCH ×2 (14:02→19:31)
[2017-11-29] MEDS: Prenatal Vitamin 1 TAB PO SCH (14:03)
[2017-11-30] MEDS: Ibuprofen 800 MG TAB PO SCH ×2 (05:54→16:17)
--- NOTE | 2017-11-30 06:32 | PDOC.PP ---
Post Progress Note Post Day #: 2 Subjective: Patient has no complaints. Denies pain. Reports only mild itching in feet that is greatly improved. Breast and bottle feeding. PO intake tolerated: yes Flatus: yes Ambulation: yes Vital Signs (12 hours) Temp Pulse Resp BP Pulse Ox 11/29/17 21:15 98.3 F 72 20 111/72 99 Weight Admit Weight 67.585 kg Weight 67.585 kg - Physical Examination General: NAD Cardiovascular: no m/r/g, RRR Respiratory: clear to auscultation bilaterally, non-labored breathing Abdominal: + bowel sounds, no distention, appropriately TTP Fundus firm & at: below umbilicus Extremities: negative homans (B) Skin: no rash Neurological: no gross focal deficits Psychiatric: A&Ox3, normal affect Result Diagrams: 11/29/17 11:33 11/26/17 19:42 Additional Labs: Post Labs Blood Type B POSITIVE 11/26/17 19:42 Hep Bs Antigen Non-Reactive S/CO (NonReactive) 11/26/17 19:42 (1) delivery after induction of labor Code(s): O60.10X0 - LABOR W DELIVERY, UNSP TRIMESTER, UNSP Status: Acute (2) Cholestasis during in third trimester Code(s): O26.613 - LIVER AND BILIARY TRACT DISORD IN , THIRD TRIMESTER ; K83.1 - OBSTRUCTION OF BILE DUCT Status: Acute (3) Oligohydramnios in weber in third trimester Code(s): O41.03X0 - OLIGOHYDRAMNIOS, THIRD TRIMESTER, NOT APPLICABLE OR UNSP Status: Acute - Assessment/Plan 32 yo delivered a PTAGA female at 34 weeks by 29.1 wk sono on 11/28 @ 0336 via . Induced due to oligohydramnios, SARBJIT 4.2 with no fluid pocket > 2. Complicated by cholestasis of . 1. s/p after induction for oligohydramnios - patient received steroid antepartum for lung maturity - PPD #2 - Meeting all pp milestones - Continue plan of care - PP H&H stable - breast and bottle feeding - undecided on type of contraception 2. Cholestasis during -minimal itching in feet -continue to monitor symptoms -ordered CMP to ensure enzymes trending down. Hep C ordered. 3. Unknown GBS status -GBS test not performed -due to prematurity patient given antibiotics before delivery 4. Oligohydramnios with indication for induction -s/p Dispo: Plan to discharge today pending CMP results. As infant is in NICU, will d /c to bed and breakfast. <Ladi Luna - Last Filed: 11/30/17 14:03> Vital Signs (12 hours) Temp Pulse Resp BP Pulse Ox 11/30/17 07:57 98.2 F 56 L 18 121/75 98 11/30/17 07:50 98.2 F 56 L 18 Weight Admit Weight 67.585 kg Weight 67.585 kg Result Diagrams: 11/29/17 11:33 11/30/17 13:45 Additional Labs: Post Labs Blood Type B POSITIVE 11/26/17 19:42 Hep Bs Antigen Non-Reactive S/CO (NonReactive) 11/26/17 19:42 <Elliott Glover - Last Filed: 11/30/17 16:30> Attending Addendum - Attending Addendum Date/Time: 11/30/17 1630 I personally evaluated the patient and discussed the management with Dr. Hooker and team. I agree with and repeated the History, Examination, Assessment and Plan documented above with any addition or exceptions noted below. <Elliott Glover - Last Filed: 11/30/17 16:30>
[2017-11-30] MEDS: Prenatal Vitamin 1 TAB PO SCH (08:18)
[2017-11-30] MEDS: Docusate Calcium (SURFAK) 240 MG CAP PO SCH (08:19)
[2017-11-30] MEDS: Ferrous Sulfate 325 MG TAB PO SCH (08:19)
[2017-11-30] MEDS: Lactated Ringer's 1,000 ML IV SCH (08:19)
[2017-11-30 14:18] LABS: ALT (SGPT) 41 U/L (8-55); AST (SGOT) 20 U/L (5-34); Albumin 3.3 g/dL (3.5-5.0); Alkaline Phosphatase 209 U/L (40-150); Anion Gap 11 mmol/L (10-20); BUN (Urea Nitrogen) 11 mg/dL (7.0-18.7); Bilirubin, Total 0.4 mg/dL (0.2-1.2); Calc. Creatinine Clearance 181 mL/min (70-130); Calcium 9.7 mg/dL (7.8-10.44); Carbon Dioxide 24 mmol/L (22-29); Chloride 105 mmol/L (98-107); Estimated GFR-MDRD Greater than 90; Globulin 3.6 g/dL (2.4-3.5); Glucose 90 mg/dL (70-105); Potassium 4.3 mmol/L (3.5-5.1); Protein, Total 6.9 g/dL (6.0-8.3); Sodium 136 mmol/L (136-145)
[2017-11-30 14:45] LABS: Hep C IgG Ab Non-Reactive (NonReactive); Hep C Index 0.13 S/CO (0-0.79)
[2017-11-30 16:55] VITALS: BP 123/79; TEMP 98.1
== END 2017-11-30 18:29 | disposition home or self-care (01) | DRG 775 ==
LOC: L&D/OP 13:02 → L&D 16:07 → 3SE 11-28 06:59
PROVIDERS: ADMIT Family Medicine; ATTEND Family Medicine
PROC: 3E0233Z Introduction of Anti-inflammatory into Muscle, Percutaneous Approach (ICD-10-PCS; 2017-11-25)
PROC: 3E033VJ Introduction of Other Hormone into Peripheral Vein, Percutaneous Approach (ICD-10-PCS; 2017-11-27)
PROC: 3E0P7VZ Introduction of Hormone into Female Reproductive, Via Natural or Artificial Opening (ICD-10-PCS; 2017-11-27)
PROC: 10E0XZZ Delivery of Products of Conception, External Approach (ICD-10-PCS; principal; 2017-11-28)
PROC: 3E0234Z Introduction of Serum, Toxoid and Vaccine into Muscle, Percutaneous Approach (ICD-10-PCS; 2017-11-28)
DX: O41.03X0 Oligohydramnios, third trimester, not applicable or unspecified (principal); O60.14X0 Preterm labor third trimester with preterm delivery third trimester, not applicable or unspecified; O26.62 Liver and biliary tract disorders in childbirth; Z37.0 Single live birth; O69.81X0 Labor and delivery complicated by cord around neck, without compression, not applicable or unspecified; Z23 Encounter for immunization; Z3A.34 34 weeks gestation of pregnancy
CPT/HCPCS: 36415; 51702; 59025; 76815; 76819; 80053; 84112; 85014; 85018; 85025; 86780; 86803; 86850; 86900; 86901; 87340; 87389; 88307; 93976; 99285; J0595; J0702; J2210; J2540; J3010; J7050

== ENCOUNTER 2019-02-10 23:47 | Inpatient (IN) | payer MEDICAID, SELFPAY ==
[2019-02-11 00:35] LABS: #Basophils 0.1 thou/uL (0.0-0.2); #Monocytes 0.5 thou/uL (0.11-0.59); #Neutrophils 6.4 thou/uL (1.40-6.50); %Basophils 1.1 % (0.0-1.0); %Eosinophils 0.2 % (0.0-10.0); %Monocytes 6.1 % (0.0-10.0); %Neutrophils 80.7 % (42.0-75.0); Hemoglobin 12.9 g/dL (12.0-16.0); Mean Corpuscular HGB CONC 35.1 g/dL (32.0-36.0); Mean Corpuscular Hemoglobin 29.9 pg (27.0-31.0); Mean Corpuscular Volume 85.3 fL (78.0-98.0); Mean Platelet Volume 9.4 fL (7.4-10.4); Platelet Count 191 thou/uL (130-400); RBC Distribution Width 11.6 % (11.5-14.5); Red Blood Cell (RBC) Count 4.32 mill/uL (4.20-5.40)
[2019-02-11 00:37] LABS: Pregnancy Test - Urine (BHCG) Negative (Negative); Pregu Control Background? CLEAR/WHITE (CLR/WHITE); Pregu Control Bar Appear? YES (CONTROL BAR)
[2019-02-11 00:38] LABS: Bacteria/HPF 1+ HPF (None Seen); Bilirubin Negative (Negative); Blood, Urine 1+ (Negative); Clarity Clear (Clear); Glucose, Urine (Dipstick) Normal (Negative); Leukocyte 25 Leu/uL (Negative); Nitrite 2+ (Negative); Protein, Urine (Dipstick) 20 mg/dL (Neg-Trace); Squamous Epithelial 0-3 HPF (0-3); Urobilinogen Normal mg/dL (Less than 2)
[2019-02-11 00:39] LABS: Specific Gravity 1.023 (1.002-1.036)
[2019-02-11] MEDS ORDERED: Sodium Chloride 0.9% 100 ML ONE (00:47)
[2019-02-11] MEDS ORDERED: cefTRIAXone\\ROCEPHIN 1 GM VIAL ONE (00:47)
[2019-02-11] MEDS ORDERED: Acetaminophen 500 MG TAB ONE (00:47)
[2019-02-11] MEDS ORDERED: Morphine 4 MG/ML VIAL ONE (00:47)
[2019-02-11 00:57] LABS: ALT (SGPT) 50 U/L (8-55); AST (SGOT) 20 U/L (5-34); Albumin 4.6 g/dL (3.5-5.0); Alkaline Phosphatase 95 U/L (40-110); Anion Gap 12 mmol/L (10-20); BUN (Urea Nitrogen) 6 mg/dL (7.0-18.7); Bilirubin, Total 0.8 mg/dL (0.2-1.2); Calc. Creatinine Clearance 0 mL/min (70-130); Calcium 9.4 mg/dL (7.8-10.44); Carbon Dioxide 21 mmol/L (22-29); Chloride 106 mmol/L (98-107); Estimated GFR-MDRD Greater than 90; Globulin 3.2 g/dL (2.4-3.5); Glucose 102 mg/dL (70-105); Lipase 11 U/L (8-78); Potassium 3.5 mmol/L (3.5-5.1); Protein, Total 7.8 g/dL (6.0-8.3); Sodium 135 mmol/L (136-145)
[2019-02-11] MEDS ORDERED: Sodium Chloride 0.9% 1,000 ML IV SCH (03:15)
[2019-02-11 03:30] VITALS: BMI 32.8
[2019-02-11] MEDS ORDERED: Vancomycin HCl 1 GM in Premix Bag 1 BAG IVPB SCH (04:00)
[2019-02-11] MEDS ORDERED: Ondansetron PF 4 MG/2 ML Vial IVP PRN (04:40)
[2019-02-11] MEDS ORDERED: Morphine 2 MG/ML SYRINGE SLOW IVP PRN (04:40)
[2019-02-11] MEDS ORDERED: Acetaminophen 325 MG TAB PO PRN (04:40)
[2019-02-11] MEDS ORDERED: Bisacodyl 5 MG TAB PO PRN (04:40)
[2019-02-11] MEDS ORDERED: HYDROcodone/Acetaminophen 5/325 mg Tablet PO PRN (04:40)
[2019-02-11] MEDS ORDERED: Bisacodyl 10 MG SUPP PR PRN (04:40)
[2019-02-11] MEDS ORDERED: Senokot S 8.6-50 MG TAB PO PRN (04:40)
--- NOTE | 2019-02-11 04:46 | PDOC.HHP ---
Hospitalist HPI - History of Present Illness R flank pain History of Present Illness: Patient is a 23 year old female with H pyelonephritis 2018 who presents for 2 days of worsening dysuria and R flank pain. She reports this is similar to when she developed pyelonephritis last year 2 months after having a baby. patient reports that she had a fever yesterday but did not measure temperature. She developed R flank pain as well. She was in normal health before then. In the ED , vitals tachycardic and BP trending down, but MAP never went below 65. She was given 2L IVF, CT abdomen pelvis suspicious for pyelonephritis, UA positive, blood and urine cultures ordered, patient given ceftriaxone and admitted to [facility] physician hospitalist service. Hospitalist ROS - Review of Systems Constitutional: reports: fever, chills Eyes: denies: pain, vision change, conjunctivae inflammation ENT: denies: ear pain, ear discharge, throat pain Respiratory: reports: pleuritic pain. denies: cough, dry, shortness of breath Cardiovascular: denies: chest pain, palpitations Gastrointestinal: denies: nausea, vomiting Genitourinary: reports: dysuria, frequency Musculoskeletal: denies: neck pain, shoulder pain Skin: denies: rash, lesions Neurological: denies: weakness, numbness All other systems reviewed; all pertinent +/- noted in HPI/Subj Hospitalist History - Past Medical History Other Medical History: history of pyelonephritis last year, no other significant medical history - Past Surgical History Past Surgical History: reports: no pertinent history - Family History Family History: reports: no pertinent history - Social History Smoking Status: Never smoker Alcohol: reports: None Drugs: reports: none - Exam General Appearance: NAD, awake alert Eye: PERRL, anicteric sclera ENT: normocephalic atraumatic, no oropharyngeal lesions, moist mucosa Neck: supple, symmetric, no JVD, no thyromegaly, no lymphadenopathy, no carotid bruit Heart: RRR, no murmur, no gallops, no rubs, normal peripheral pulses Respiratory: CTAB, no wheezes, no rales, no ronchi, normal chest expansion, no tachypnea, normal percussion Gastrointestinal: soft, non-tender, non-distended, normal bowel sounds, no palpable masses, no hepatomegaly, no splenomegaly, no bruit Extremities: no cyanosis, no clubbing, no edema Skin: normal turgor, no lesions, no rashes Neurological: cranial nerve grossly intact, normal sensation to touch, no weakness, no focal deficits, no new deficit Musculoskeletal: normal tone, normal strength, no muscle wasting Musculoskeletal - other findings: +R CVA tenderness Psychiatric: normal affect, normal behavior, A&O x 3 Hospitalist Results - Labs Result Diagrams: 02/11/19 00:25 02/11/19 00:25 Lab results: WBC 8.0 thou/uL (4.8-10.8) 02/11/19 00:25 Hgb 12.9 g/dL (12.0-16.0) 02/11/19 00:25 Hct 36.8 % (36.0-47.0) 02/11/19 00:25 MCV 85.3 fL (78.0-98.0) 02/11/19 00:25 Plt Count 191 thou/uL (130-400) 02/11/19 00:25 Neutrophils % 80.7 % (42.0-75.0) H 02/11/19 00:25 Sodium 135 mmol/L (136-145) L 02/11/19 00:25 Potassium 3.5 mmol/L (3.5-5.1) 02/11/19 00:25 Chloride 106 mmol/L (98-107) 02/11/19 00:25 Carbon Dioxide 21 mmol/L (22-29) L 02/11/19 00:25 BUN 6 mg/dL (7.0-18.7) L 02/11/19 00:25 Creatinine 0.72 mg/dL (0.6-1.1) 02/11/19 00:25 Glucose 102 mg/dL (70-105) 02/11/19 00:25 Lactic Acid 1.0 mmol/L (0.5-2.2) 02/11/19 00:50 Calcium 9.4 mg/dL (7.8-10.44) 02/11/19 00:25 Total Bilirubin 0.8 mg/dL (0.2-1.2) 02/11/19 00:25 AST 20 U/L (5-34) 02/11/19 00:25 ALT 50 U/L (8-55) 02/11/19 00:25 Alkaline Phosphatase 95 U/L (40-110) 02/11/19 00:25 Serum Total Protein 7.8 g/dL (6.0-8.3) 02/11/19 00:25 Albumin 4.6 g/dL (3.5-5.0) 02/11/19 00:25 Lipase 11 U/L (8-78) 02/11/19 00:25 Urine Ketones Negative mg/dL (Negative) 02/11/19 00:15 Urine Blood 1+ (Negative) A 02/11/19 00:15 Urine Nitrite 2+ (Negative) A 02/11/19 00:15 Ur Leukocyte Esterase 25 Kim/uL (Negative) 02/11/19 00:15 Urine RBC 11-20 HPF (0-3) A 02/11/19 00:15 Urine WBC 4-6 HPF (0-3) A 02/11/19 00:15 Ur Squamous Epith Cells 0-3 HPF (0-3) 02/11/19 00:15 Urine Bacteria 1+ HPF (None Seen) 02/11/19 00:15 Additional comment: VITAL SIGNS Sat Feb 11, 2019 00:34 NATANAEL De Leon, Esthela BP: 112/80, Pulse: 106, Resp: 18, O2 sat: 100 on Room Air, Time: 02/11/2019 00:34. Hospitalist H&P A/P - Plan Plan: Patient is a 23 year old female with H pyelonephritis 2017 who presents for 2 days of worsening dysuria and R flank pain. # R pyelonephritis - admit to floor - start levaquin - aggressive rehydration - await all culture results - await final CT results Code: full Preventative measures
[2019-02-11] MEDS ORDERED: diphenhydrAMINE 50 MG/ML VIAL ONE (06:32)
[2019-02-11] MEDS ORDERED: diphenhydrAMINE 50 MG/ML VIAL IVP SCH (06:45)
--- NOTE | 2019-02-11 06:56 | CT ---
PRELIMINARY REPORT/[facility]/EMERGENCY AFTER HOURS PROCEDURE PROCEDURE INFORMATION: Exam: CT Abdomen and Pelvis With Contrast Exam date and time: 02/11/2019 1:06 AM Clinical history: 23 years old, female; Abdominal pain; Patient HX: Er 9. Previous in pacs. 23 y/o F presents to ED C/O x 2 days of R flank pain. PT reports similar h/o pain x 1 yr ago, at which time sh sabi was dx with pyelonephritis. TECHNIQUE: Imaging protocol: Computed tomography of the abdomen and pelvis with intravenous contrast. COMPARISON: No relevant prior studies available. FINDINGS: Lungs: There is mild bibasilar atelectatic change or scarring. Liver: There is hepatomegaly. Gallbladder and bile ducts: Normal. No calcified stones. No ductal dilation. Pancreas: Normal. No ductal dilation. Spleen: There is mild splenomegaly. Adrenals: Normal. No mass. Kidneys and ureters: There is right renal cortical scarring. There is a focus of peripheral hypodensi ty or decreased enhancement in the posterior aspect of the interpolar right kidney with this region shemar uring approximately 1.7 x 1.3 cm with subtle perinephric fat stranding. Possibilities include focal m ild acute pyelonephritis versus indeterminate mass lesion cannot be excluded. Stomach and bowel: Unremarkable. No obstruction. No mucosal thickening. Appendix: The appendix is unremarkable and seen best on axial image 61 of series 2. Intraperitoneal space: Unremarkable. No free air. No significant fluid collection. Vasculature: Unremarkable. No abdominal aortic aneurysm. Lymph nodes: Unremarkable. No enlarged lymph nodes. Bladder: Unremarkable as visualized. Reproductive: There is an involuting follicle or cyst of the right ovary measuring 1.7 cm and there i s a small volume of free fluid in the pelvis, cannot exclude ovarian cyst rupture. Bones/joints: Unremarkable. No acute fracture. Soft tissues: Unremarkable. IMPRESSION: 1. There is right renal cortical scarring. There is a focus of peripheral hypodensity or decreased en hancement in the posterior aspect of the interpolar right kidney with this region measuring approxima tely 1.7 x 1.3 cm with subtle perinephric fat stranding. Possibilities include focal mild acute pyelo nephritis versus indeterminate mass lesion cannot be excluded. 2. There is an involuting follicle or cyst of the right ovary measuring 1.7 cm and there is a small v olume of free fluid in the pelvis, cannot exclude ovarian cyst rupture. Thank you for allowing us to participate in the care of your patient. Dictated and Authenticated by: Dom Rinaldi MD 02/11/2019 1:57 AM Central Time ([place] & [place]) FINAL REPORT CT ABDOMEN AND PELVIS WITH CONTRAST: FINDINGS: I agree with the preliminary report provided. There is a focal area of diminished enhancement and slight mass like prominence involving the right m id kidney, suspicious for an area of focal pyelonephritis. Underlying malignancy is felt to be less l ikely. Follow-up CT imaging with and without contrast after antibiotic therapy is recommended. There is slight prominence of the right renal collecting system, which may reflect a component of an ascend ing urinary tract infection. No definite obstructing renal calculus is noted. Involuting follicle of the right ovary Small amount of free fluid in the pelvis. CODE QA POS: BH
[2019-02-11] MEDS: Enoxaparin Sodium 40 MG/0.4 ML SYRINGE SC SCH (09:09)
[2019-02-11] MEDS: Famotidine 20 MG TAB PO SCH ×2 (09:09→20:10)
[2019-02-11] MEDS: Sodium Chloride 0.9% 1,000 ML IV SCH ×2 (10:34→17:31)
[2019-02-11] MEDS ORDERED: ISOVUE-370 76%-LOCM 1 ML ONE (12:15)
[2019-02-12] MEDS: Sodium Chloride 0.9% 1,000 ML IV SCH ×4 (00:01→16:12)
[2019-02-12 04:29] LABS: #Eosinphils 0.2 thou/uL (0.0-0.7); #Lymphocytes 2.7 thou/uL (1.20-3.40); #Monocytes 0.7 thou/uL (0.11-0.59); #Neutrophils 3.6 thou/uL (1.40-6.50); %Basophils 0.1 % (0.0-1.0); %Eosinophils 2.4 % (0.0-10.0); %Lymphocytes 37.2 % (21.0-51.0); %Monocytes 9.6 % (0.0-10.0); %Neutrophils 50.8 % (42.0-75.0); Hemoglobin 10.8 g/dL (12.0-16.0); Mean Corpuscular HGB CONC 34.8 g/dL (32.0-36.0); Mean Corpuscular Hemoglobin 30.3 pg (27.0-31.0); Mean Corpuscular Volume 86.9 fL (78.0-98.0); Mean Platelet Volume 9.5 fL (7.4-10.4); Platelet Count 160 thou/uL (130-400); RBC Distribution Width 11.5 % (11.5-14.5); Red Blood Cell (RBC) Count 3.56 mill/uL (4.20-5.40); White Blood Cell (WBC) Count 7.2 thou/uL (4.8-10.8)
[2019-02-12 04:42] LABS: Anion Gap 9 mmol/L (10-20); BUN (Urea Nitrogen) 7 mg/dL (7.0-18.7); Calc. Creatinine Clearance 187 mL/min (70-130); Calcium 8.3 mg/dL (7.8-10.44); Carbon Dioxide 21 mmol/L (22-29); Chloride 111 mmol/L (98-107); Estimated GFR-MDRD Greater than 90; Glucose 99 mg/dL (70-105); Potassium 3.8 mmol/L (3.5-5.1); Sodium 137 mmol/L (136-145)
[2019-02-12] MEDS: Famotidine 20 MG TAB PO SCH (09:30)
[2019-02-12] MEDS: Enoxaparin Sodium 40 MG/0.4 ML SYRINGE SC SCH (09:30)
[2019-02-12 12:14] VITALS: BP 108/58; TEMP 98.4
--- NOTE | 2019-02-13 03:54 | DIS ---
DATE OF ADMISSION: 02/11/2019 DATE OF DISCHARGE: 02/12/2019 DISPOSITION: The patient was discharged home. FINAL DIAGNOSES: 1. Acute pyelonephritis. 2. Dehydration. CONDITION: Stable and improved. DIET: Regular diet. MEDICATIONS: Please refer to medication discharge reconciliation form. ACTIVITY: As tolerated. Do not over exert yourself, no strenuous activities. DISCHARGE INSTRUCTIONS: If any fevers, chills, nausea, vomiting, chest pain, shortness of breath, bleeding, swelling, weakness, numbness, seek immediate medical attention. CONSULTANTS: None. SIGNIFICANT LABORATORY AND DIAGNOSTIC STUDIES: Include urine culture showing E. coli. FOLLOWUP: Primary care physician in 1 week. BRIEF HOSPITAL COURSE: Ms. Vandana Yanez is a pleasant 23-year-old female who had presented to the emergency room with a 2-day history of dysuria and right flank pain, found to have acute pyelonephritis. She was admitted to the hospital with IV fluids. She was started on Levaquin, for which the patient tolerated medications well without any reaction. She has remained afebrile. She has been ambulatory, tolerating oral intake and would like to be discharged home. On the day of discharge, during my [id number] meeting with the patient, I discussed all discharge instructions including the need for compliance with medication, followup and when to return to the emergency room for which she has verbalized understanding. TIME SPENT: Total discharge time spent 35 minutes. Job ID: [id number]
--- NOTE | 2019-02-14 04:41 | PQF ---
SORAIDA GARIBAY LUIS FELIPE, DO [id number] CLINICAL DOCUMENTATION CLARIFICATION FORM: POST DISCHARGE Addendum to original discharge summary date: ____ Late entry note date: __ DATE: 02-14-2019 ATTN: Sean Alston Please exercise your independent, professional judgment in responding to the clarification form. Clinical indicators are provided on the bottom of this form for your review Please check appropriate box(s): [ ] SIRS with Sepsis [ X] SIRS without Sepsis [ ] SIRS due to non infectious process [ ] Dehydration [ ] Other diagnosis please specify: [ ] Other diagnosis please specify [ ] Unable to determine In addition, please specify: Present on Admission (POA): [ X ] Yes [ ] No [ ] Unable to determine For continuity of documentation, please document condition throughout progress notes and discharge summary. Thank You. CLINICAL INDICATORS ED NOTES 02/11 "patient presents for evaluation of flank pain on the right" ED NOTES 02/11 "currently severity of pain rated as 8/10" ED NOTES 02/11 "Associated with fever" ED NOTES 02/11 "SIRS" HP 02/11 "presents for 2 days of worsening dysuria and right flank pain" DS 02/12 "urine culture showing E.coli" ED NOTES 02/11 Pulse 116 RISK FACTORS HP 02/11 - pyelonephritis DS 02/12 - Dehydration HP 02/11 - 23 years old female TREATMENT ED NOTES 02/11 -IVF ED NOTES 02/11 -Urine culture 02/11 -Abdomen/Pelvis CT MAR 02/11 -Rocephin 1gm IV. JUL 23 -Vancomycin 1gm IV (This form is maintained as a part of the permanent medical record) 2014 [employer]. All Rights Reserved Lucrecia [email or web address] [not provided] [email or web address]
== END 2019-02-12 19:50 | disposition home or self-care (01) | DRG 690 ==
LOC: ERS 23:47 → ONC 02-11 02:05
PROVIDERS: ADMIT Internal Medicine; ATTEND Internal Medicine
DX: N10 Acute pyelonephritis (principal); R65.10 Systemic inflammatory response syndrome (SIRS) of non-infectious origin without acute organ dysfunction; E86.0 Dehydration; B96.20 Unspecified Escherichia coli [E. coli] as the cause of diseases classified elsewhere
CPT/HCPCS: 36415; 74177; 80048; 80053; 81003; 81015; 81025; 83605; 83690; 85025; 87077; 87086; 87186; J0696; J1200; J1650; J1956; J2270; J3370; J3490; Q9966